=== PATIENT | female | born 1990 | race Caucasian/White ===

== ENCOUNTER 2019-06-30 12:23 | Outpatient (REF) | payer OTHER, SELFPAY ==
--- NOTE | 2019-06-30 10:00 | PAPFT_PTH ---
PATIENT: GERALD BLACKMON LOC: [facility]#:[id number] AGE/SX: 29/F ROOM: RE06/30/[address]: Pat Murray : 1990 BED: DIS: 06/30/2019 SPEC #: [id number] RECD: 07/01/19 12:25 STATUS: BRIANA MCCALL #: [id number] ALFRED: 06/30/19 10:[address]: Pat Park DEPT: [facility]LY [facility], [facility] Cytology RECD BY: Cornelia Campos ENTERED: 07/01/19 12:25 SP TYPE: PAPFT OTHR DR: Anjelica Marrufo Tissues: 1 - CX/ENDOCX FOR PAP SMEARS Procedures: PAP THIN PREP/[facility] Screening HPV DNA PROBE Comments: [id number]
== END 2019-06-30 12:43 ==
LOC: NCHCN 12:23
PROVIDERS: PCP Nurse Practitioner Family; Visit Provider Nurse Practitioner Family
DX: Z12.4 Encounter for screening for malignant neoplasm of cervix (principal); Z11.51 Encounter for screening for human papillomavirus (HPV); Z00.00 Encounter for general adult medical examination without abnormal findings
CPT/HCPCS: 88142; 87624

== ENCOUNTER 2019-10-14 18:55 | Outpatient (REF) | payer OTHER, SELFPAY ==
[2019-10-16 14:45] LABS: Chlamydia Result Negative (Negative); GC Result Negative (Negative)
== END 2019-10-14 19:15 ==
LOC: NCHCN 18:55
PROVIDERS: PCP Nurse Practitioner Family; Visit Provider Nurse Practitioner Family
DX: R30.0 Dysuria (principal); Z11.3 Encounter for screening for infections with a predominantly sexual mode of transmission
CPT/HCPCS: 87077; 87491; 87591; 87086; 87186